=== PATIENT | male | born 1970 | race Hispanic/Latino ===

== ENCOUNTER 2017-05-03 00:25 | Emergency (ER) | payer SELFPAY ==
[2017-05-03] MEDS ORDERED: SUBLIMAZE IV ONE (01:07)
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
[2017-05-03 01:36] LABS: Basophils % (Auto) 0.4 % (0.0-1.8); Eosinophils % (Auto) 1.1 % (0.0-4.3); Hematocrit 40.4 % (35.5-45.6); Hemoglobin 14.5 gm/dl (11.8-15.2); Mean Corpuscular HGB Conc 36 % (32-34); Mean Corpuscular Hemoglobin 35 pg (28-32); Mean Corpuscular Volume 97 fl (84-94); Platelet Count 213 K/mm3 (140-440); Red Blood Count 4.17 M/mm3 (3.65-5.03); Red Cell Distribution Width 12.6 % (13.2-15.2)
[2017-05-03 01:45] LABS: INR 0.94 (0.87-1.13); Partial Thromboplastin Time 25.8 Sec. (24.2-36.6)
[2017-05-03 01:54] LABS: Albumin/Globulin Ratio 1.1 %; BUN/Creatinine Ratio 6.78; Bilirubin,Total 0.8 mg/dL (0.1-1.2); Calcium 9.5 mg/dL (8.4-10.2); Chloride 90.2 mmol/L (98-107); Total Protein 7.8 g/dL (6.3-8.2)
[2017-05-03] MEDS ORDERED: NACL 0.9% 1000 ML 1,000 ML IV ONE (01:55)
--- NOTE | 2017-05-03 02:11 | Cat Scan Report ---
FINAL REPORT PROCEDURE: CT CERVICAL SPINE WO CON TECHNIQUE: Computerized tomography of the cervical spine was performed from the skull base to T1 without contrast material. HISTORY: neck pain after fall COMPARISON: No prior studies are available for comparison. FINDINGS: The alignment of the vertebral segments is normal. The heights of the vertebral bodies are maintained. There is loss of disc space height at the C4-5 level. Moderate spur formation off the vertebral bodies from the C3 through the C7 vertebral levels are identified. There is some anterior osseous bridging at the C3-4 and C4-5 levels. No acute fracture or dislocation of the cervical spine. The spinal canal is adequate at all levels. The visualized portion of the airway is patent. IMPRESSION: No acute fracture or dislocation of the cervical spine. Mild cervical spondylosis and degenerative disc changes.
--- NOTE | 2017-05-03 02:20 | Cat Scan Report ---
FINAL REPORT PROCEDURE: CT HEAD/BRAIN WO CON TECHNIQUE: Computerized tomography of the head was performed without contrast material. HISTORY: fall and headache COMPARISON: No prior studies are available for comparison. FINDINGS: Skull and scalp: There is a linear fracture through right occipital bone. The remainder of the skull appears intact. No depressed skull fracture.. Paranasal sinuses: Normal. Ventricles and subarachnoid spaces: Normal. Cerebrum: There are multiple small areas of hyper attenuation identified in the right lower frontal and anterior temporal lobes consistent with cerebral contusion in these regions. The largest area measures approximately 1 centimeter. There are multiple full side noted. Followup imaging will be essential. No edema is identified. No mass effect or midline displacement is noted. There is a slight left frontal subarachnoid hemorrhage.. Cerebellum and brainstem: No evidence of hemorrhage, acute infarction or mass. Vasculature: Normal. Comments: None. IMPRESSION: Right lower frontal and anterior temporal lobe cerebral contusion is identified. No edema is identified at this time. No mass effect or midline displacement. There is a slight left frontal subarachnoid hemorrhage. Linear fracture through the right occipital bone is noted. No depressed skull fracture. The above findings are discussed with the patient's ER physician at the time of dictation 01:18 central standard time on 05/03/2017
[2017-05-03] MEDS ORDERED: ZOFRAN IV ONE (02:58)
[2017-05-03] MEDS ORDERED: ZOFRAN ONE (03:03)
[2017-05-03 04:08] VITALS: BP 109/62
--- NOTE | 2017-05-03 09:32 | XRay Report ---
AP CHEST: HISTORY: chest pain AP view of the chest demonstrates a normal mediastinal and cardiac contour with clear lungs and normal bony and soft tissue structures. IMPRESSION: Unremarkable AP chest.
== END 2017-05-03 04:16 | disposition other institution (70) ==
LOC: ED 00:25
DX: S06.321A Contusion and laceration of left cerebrum with loss of consciousness of 30 minutes or less, initial encounter (principal); N17.9 Acute kidney failure, unspecified; I10 Essential (primary) hypertension; M19.90 Unspecified osteoarthritis, unspecified site; F17.200 Nicotine dependence, unspecified, uncomplicated; Z21 Asymptomatic human immunodeficiency virus [HIV] infection status; Z89.022 Acquired absence of left finger(s); W19.XXXA Unspecified fall, initial encounter; Y93.89 Activity, other specified; Y99.9 Unspecified external cause status; Y92.59 Other trade areas as the place of occurrence of the external cause
CPT/HCPCS: 36415; 70450; 71010; 72125; 80053; 85025; 85610; 85730; 96361; 96374; 96375; 99291; J2405; J3010; J7030